=== PATIENT | female | born 1960 | race Caucasian/White ===

== ENCOUNTER 2018-06-04 10:55 | Emergency (ER) | payer BC ==
[2018-06-04] MEDS ORDERED: CITA-157 PO (11:03)
[2018-06-04] MEDS ORDERED: HYDR12.556 PO (11:03)
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
--- NOTE | 2018-06-04 11:44 | EKG ---
FACILITY: [facility] PATIENT NAME: SIRENA HENRY : [id number] MR: [id number] V: [id number] EXAM DATE: ORDERING PHYSICIAN: CALIXTO ANAYA TECHNOLOGIST: Test Reason : Blood Pressure : / mmHG Vent. Rate : 073 BPM Atrial Rate : 073 BPM P-R Int : 128 ms QRS Dur : 076 ms QT Int : 298 ms P-R-T Axes : 008 -19 119 degrees QTc Int : 328 ms Normal sinus rhythm Nonspecific ST and T wave abnormality Abnormal ECG No previous ECGs available Confirmed by DARRICK CHINCHILLA ([id number]) on 06/04/2018 2:02:12 PM Referred By: Confirmed By:DARRICK CHINCHILLA
[2018-06-04] MEDS ORDERED: HYDR-385 PO (12:08)
[2018-06-04] MEDS ORDERED: DICL-195 PO (12:08)
[2018-06-04 12:17] VITALS: BP 104/77
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
== END 2018-06-04 12:20 | disposition home or self-care (01) ==
LOC: ER 11:09
DX: S20.219A Contusion of unspecified front wall of thorax, initial encounter (principal); V89.2XXA Person injured in unspecified motor-vehicle accident, traffic, initial encounter; M94.0 Chondrocostal junction syndrome [Tietze]
CPT/HCPCS: 36415; 71046; 71100; 71120; 84484; 93005; 99284